=== PATIENT | male | born 1980 | race Caucasian/White ===

== ENCOUNTER 2025-09-15 14:10 | Emergency (ER) | payer BC, SELFPAY ==
[2025-09-15 14:25] VITALS: BP 142/96
[2025-09-15 14:54] LABS: Hematocrit 46.0 % (39.0-52.0); Hemoglobin 15.9 g/dL (13.0-18.0); Mean Corp Hgb Conc. 34.6 g/dL (33.0-37.0); Mean Corpuscular Volume 87.6 fL (80.0-94.0); Nucleated Red Blood Cells % 0 % (-); Platelet Count 154 10^3/uL (130-400); Red Cell Dist. Width 13.0 % (11.5-14.5)
[2025-09-15 15:10] LABS: ALT (SGPT) 38 U/L (0-50); AST (SGOT) 42 U/L (17-59); Albumin 4.9 g/dl (3.5-5.0); Alkaline Phosphatase 69 U/L (38-126); Blood Urea Nitrogen 12 mg/dl (9-20); Calcium 9.6 mg/dl (8.4-10.2); Carbon Dioxide 27 mmol/L (22-30); Chloride 103 mmol/L (98-107); Glucose 99 mg/dl (70-99); Potassium 3.6 mmol/L (3.5-5.1); Sodium 137 mmol/L (135-145); Total Protein 7.4 g/dl (6.3-8.2); eGFR > 60.00
[2025-09-15 15:20] LABS: Troponin I < 0.012 ng/ml
--- NOTE | 2025-09-15 17:21 | ED.GENMED ---
History of Present Illness
General
Chief Complaint: Chest Pain
Source: patient
Exam Limitations: none
Time Seen by Provider: 09/15/25 17:20
Nursing documentation reviewed up to this point in time: agreed with
History of Present Illness
History of Present Illness:
45 yo male with hx HTN presents with shortness of breath and 'just a little, hardly noticeable' mid chest 'sensation.' He noted these symptoms occurred throughout the day but were most pronounced in the morning around 7-8 am. The symptoms were
associated with a recent change in his hypertension medication. He switched from bisoprolol to nifedipine approximately four to five days ago. Previously, he was fatigued on bisoprolol, prompting the change in medication.
He has experienced some mild chest discomfort but denies any significant pain. He reports no recent travel, flights, or prolonged sitting. The patient is regularly active, engaging in weekend runs or bike rides, the most recent being yesterday
morning for 2-3 hours. He denies nausea, vomiting, sweating, or dizziness. His primary care physician is Alison who is handling his medications.
Past History
Past History
ED Past Medical History: HTN
ED Past Surgical History: None
Social History
Tobacco: Non-smoker
Alcohol: None
Personal:
Living: with family
Employment: Employed
Review of Systems
Review of Systems
Allergies reviewed?: Yes
All Other Systems: ROS reviewed and negative except as documented in HPI and ROS
Phy Exam
Physical Exam
Physical Exam:
GENERAL: No acute distress. A&Ox3.
CONSTITUTIONAL: Afebrile.
EYES: clear, conjunctivae normal
ENMT: moist mucus membranes, Pharynx nl
RESPIRATORY: Regular respirations, nonlabored, lungs clear.
CARDIOVASCULAR: Regular rate and rhythm, no murmurs, no rubs.
GI: Soft, nontender, normal BS
MUSCULOSKELETAL: Moves with ease. Well perfused.
SKIN: Warm, dry, pink
PSYCH: Normal mood and affect. Well kept, interactive and appropriate
NEUROLOGIC: Awake, alert and oriented. No focal neurological deficits
Scores
Heart Score for Chest Pain Patients
STEMI patient?: Not applicable
Course
Orders/Labs/Results
Orders:
Orders
09/15/25 14:15
Electrocardiogram (*1) Urgent
Reason for Study: Chest Pain
09/15/25 14:16
EKG- Treatment ONCE
09/15/25 14:34
Complete Blood Count/With Diff Urgent
Comprehensive Metabolic Panel Urgent
Troponin I Urgent
09/15/25 17:30
CR Chest - 2 Views Urgent
Comment:
Reason For Exam: Sob
Abnormal Lab Results
09/15/25
14:34
MPV 11.0 H fL
(7.4-10.4)
09/15/25 14:34
09/15/25 14:34
Vital Signs
Initial and Last Documented VS:
Initial Vital Signs
Temp Pulse Resp BP Pulse Ox
97.9 F 64 16 142/96 100
09/15/25 14:25 09/15/25 14:25 09/15/25 14:25 09/15/25 14:25 09/15/25 14:25
Last Documented Vital Signs
Temp Pulse Resp BP Pulse Ox
97.9 F 58 23 134/82 100
09/15/25 17:32 09/15/25 18:30 09/15/25 18:30 09/15/25 18:00 09/15/25 17:30
MDM/Problems Addressed
Differential Diagnosis Includes:
medication side effect, anxiety, HTN
MDM/Problems Addressed:
45 yo male with hx HTN presents with shortness of breath and 'just a little, hardly noticeable' mid chest 'sensation.' He noted these symptoms occurred throughout the day but were most pronounced in the morning around 7-8 am. The symptoms were
associated with a recent change in his hypertension medication. He switched from bisoprolol to nifedipine approximately four to five days ago. Previously, he was fatigued on bisoprolol, prompting the change in medication.Prior to that he was on
Losartan that also made him short of breath.
He has experienced some mild chest discomfort but denies any significant pain. He reports no recent travel, flights, or prolonged sitting. The patient is regularly active, engaging in weekend runs or bike rides, the most recent being yesterday
morning for 2-3 hours. He denies nausea, vomiting, sweating, or dizziness. His primary care physician is Alison who is handling his medications.
CBC, CMP normal
Troponin normal
6:00 p.m.
BP 119/74
8:00 p.m.
CXR: reviewed with Dr. Realroad: NAD
Pt stable for discharge
He will f/u with PCP tomorrow
*Pulse Oximetry
SaO2: 100
Oxygen Mode of Delivery: Room air
Patient hypoxic: no
*EKG
EKG Intrepretation Date: 09/15/25
Interpretation: normal
Heart Rate: 63
Rate: normal
Rhythm: sinus
[place]: normal axis
Interval: normal interval
QRS Pattern: normal QRS
Ischemia: no ischemia
*Critical Care Note
Total Time (30-74mins, 75-104mins- exclusive of procedures): Not Applicable
ED Attending Note
-
Portions of this chart may have been created with voice recognition software.� Occasional wrong word or��sound alike� substitutions may have occurred due to the inherent limitations of voice recognition software.
Discharge Plan
Departure
Patient Disposition: Home (Routine Discharge)
Date of Disposition: 09/15/25
Time of Disposition: 20:06
Patient with high blood pressure during this ER visit?: No
Condition: Good
Discharge Problem:
Shortness of breath
Instructions: Chest Pain That Is Not Caused by the Heart (DC)
Referrals:
Charan Rosas, DO [Family Provider, Internal Medicine] - Tomorrow
Activity Restrictions/Additional Instructions:
As we discussed, nothing worrisome in your workup here today
Speak with Dr. Rosas tomorrow about changing your BP medication.
Your last BP was 119/74
Your chest xray is normal.
Interventions
Interventions:
*Risk Screen - Suicide Last Done: 09/15/25 14:25
*General Assessment Last Done: 09/15/25 14:25
*Neglect/Abuse Screening Last Done: 09/15/25 17:33
*ED COVID-19 Vaccine History Last Done: 09/15/25 17:33
*ED Influenza Vaccine History Last Done: 09/15/25 17:33
[facility] Fall Risk Assessment Tool Last Done: 09/15/25 17:33
*Nursing Disposition Last Done: 09/15/25 20:31
ED- Cardiac Assessment Last Done: 09/15/25 17:33
Discharge Date and Time
Discharge Date/Time: 09/15/25 20:31
Print Language: JORDANIAN
[2025-09-15 17:26] VITALS: BP 145/101
[2025-09-15 17:32] VITALS: BMI 26.0
[2025-09-15 17:53] VITALS: BP 119/74
[2025-09-15 18:00] VITALS: BP 134/82
== END 2025-09-15 20:31 | disposition home or self-care (01) ==
LOC: EMR 14:10
PROVIDERS: Emergency Medicine; EMERGENCY PHYSICIAN Emergency Medicine; FAMILY PHYSICIAN Internal Medicine
DX: R06.02 Shortness of breath (principal); I10 Essential (primary) hypertension
CPT/HCPCS: 99284; 71046; 80053; 84484; 85025; 93005